=== PATIENT | female | born 1995 | race African-American/Black ===

== ENCOUNTER 2018-04-10 21:19 | Emergency (ER) | payer OTHER ==
[~2018-04-10] VITALS: Ht 167.6 cm; Wt 99.8 kg
[2018-04-10 21:59] LABS: BILIRUBIN,URINE NEGATIVE (NEG); CLARITY,URINE CLOUDY; COLOR,URINE YELLOW; NITRITE,URINE POSITIVE (NEG); PROTEIN,URINE NEGATIVE (NEG-TRACE)
[2018-04-10 22:04] LABS: BACTERIA,URINE MANY /HPF (0-FEW); RBC,URINE 0 /HPF (0-2); SQUAMOUS EPITHELIAL CELL,UR FEW /LPF
[2018-04-10 22:06] LABS: U PREG PATIENT NEGATIVE (NEG)
[2018-04-10] MEDS ORDERED: NITR100C62 PO (22:17)
[2018-04-10] MEDS ORDERED: HYDR-971 PO (22:17)
[2018-04-10] MEDS ORDERED: IBUP-1060 PO (22:17)
[2018-04-10 22:28] VITALS: BP 140/78
[2018-04-10] MEDS ORDERED: NITROFURANTOIN MONOHYD/M-CRYST 100 MG CAPSULE. PO ONE (22:30)
[2018-04-10] MEDS ORDERED: IBUPROFEN 400 MG TABLET. PO ONE (22:30)
[2018-04-10] MEDS ORDERED: HYDROcodone/APAP 10/325 1 TAB TABLET PO ONE (22:30)
--- NOTE | 2018-04-11 01:14 | EKG ---
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 RI6.01 No previous ECG available for comparison Electronically Signed On 04-15-2018 12:39:56 PORTABLE PINCH RIVETER by Aldair Bundy
--- NOTE | 2018-04-11 04:06 | PHYS DOC ---
Past Medical History Past Medical History: No Pertinent History Past Surgical History: No Surgical History Alcohol Use: None Drug Use: None Adult General Chief Complaint Chief Complaint: ABDOMINAL PAIN HPI HPI Patient is a 23 year old female who presents with MSK chest pain. Patient has been having some pain over the right rib cage in the lower side as well as the right sternal area. Pain is worse with inspiration and movement. She did not have any traumatic injury but she does work for [employer] where she routinely lifts heavy boxes. She has been having pain over the last day but it did become worse this evening. She did not take any medication for her symptoms. No shortness of breath or palpitations. She initially complains of abdominal pain but during the physical exam the pain is found to be over the right lower rib cage. Her abdominal exam is normal. Review of Systems Review of Systems Constitutional: Denies fever or chills Eyes: Denies change in visual acuity HENT: Denies nasal congestion or sore throat Respiratory: Denies cough or shortness of breath Cardiovascular: No additional information not addressed in HPI GI: Denies abdominal pain, nausea Musculoskeletal: Denies back pain Integument: Denies rash or skin lesions Neurologic: Denies headache All other systems were reviewed and found to be within normal limits, except as documented in this note. Current Medications Current Medications Current Medications Medications (Trade) Dose Ordered Sig/[facility] Start Time Stop Time Status Last Admin Dose Admin Acetaminophen/ Hydrocodone Bitart (Lortab 10/325) 2 tab 1X ONCE 04/10/18 22:30 04/10/18 22:30 DC 04/10/18 22:26 2 TAB Ibuprofen (Motrin) 800 mg 1X ONCE 04/10/18 22:30 04/10/18 22:30 DC 04/10/18 22:26 800 MG Nitrofurantoin Macrocrystals (Macrobid) 100 mg 1X ONCE 04/10/18 22:30 04/10/18 22:30 DC 04/10/18 22:25 100 MG Allergies Allergies Allergies Coded Allergies Type Severity Reaction Last Updated Verified amoxicillin Allergy Unknown reported facial swelling 04/10/18 Yes Physical Exam Physical Exam Constitutional: Well developed, well nourished, no acute distress, non-toxic appearance HENT: Normocephalic, atraumatic, bilateral external ears normal, oropharynx moist Eyes: PERRLA, EOMI, conjunctiva normal Neck: Normal range of motion, no tenderness Cardiovascular:Heart rate regular rhythm, no murmur Lungs & Thorax: Bilateral breath sounds clear to auscultation, Palpation over the right rib cage and right chest wall does reproduce her presenting complaint Abdomen: Bowel sounds normal, soft, no tenderness Skin: Warm, dry, no erythema, no rash. Back: No tenderness, no CVA tenderness Neurologic: Alert and oriented X 3, normal motor function Psychologic: Affect normal Current Patient Data Vital Signs Vital Signs Date Time Temp Pulse Resp B/P (MAP) Pulse Ox O2 Delivery O2 Flow Rate FiO2 04/10/18 22:28 90 20 140/78 (98) 99 Room Air 04/10/18 21:19 98.1 98.1 Lab Values Laboratory Tests Test 04/10/18 21:33 Urine Collection Type Unknown Urine Color Yellow Urine Clarity Cloudy Urine pH 6.0 Urine Specific [place] 1.025 Urine Protein Negative mg/dL (NEG-TRACE) Urine Glucose (UA) Negative mg/dL (NEG) Urine Ketones (Stick) Negative mg/dL (NEG) Urine Blood Negative (NEG) Urine Nitrite Positive (NEG) Urine Bilirubin Negative (NEG) Urine Urobilinogen Dipstick 1.0 mg/dL (0.2 mg/dL) Urine Leukocyte Esterase Negative (NEG) Urine RBC 0 /HPF (0-2) Urine WBC 1-4 /HPF (0-4) Urine Squamous Epithelial Cells Few /LPF Urine Bacteria Many /HPF (0-FEW) Urine Mucus Mod /LPF Urine Test Negative (NEG) EKG EKG [] Radiology/Procedures Radiology/Procedures [] Course & Med Decision Making Course & Med Decision Making Pertinent Labs and Imaging studies reviewed. (See chart for details) Patient was evaluated in the emergency department for chest pain. She did not have abdominal pain. She was treated for musculoskeletal pain symptoms. She was given pain medications. Her mother was present to drive her home. She was incidentally found to have a nitrite positive urinary tract infection although she denied urinary symptoms. Patient was treated with Macrobid. She was discharged home with medications to take at home as well. She was advised to come back to the ER for any new or worsening symptoms. Dragon Disclaimer Dragon Disclaimer This electronic medical record was generated, in whole or in part, using a voice recognition dictation system. Departure Departure Impression: Primary Impression: Musculoskeletal chest pain Additional Impression: Urinary tract infection Disposition: HOME, SELF-CARE Condition: GOOD Patient Instructions: Urinary Tract Infection, Musculoskeletal Pain Scripts Hydrocodone/Apap 5-325 (NORCO 5-325 TABLET) 1 Each Tablet 1-2 EACH PO PRN Q6HRS PRN for severe pain, #15 as needed for pain Prov: DIPTI GARDUNO DO 04/10/18 Nitrofurantoin Monohyd/M-Cryst (MACROBID 100 MG CAPSULE) 100 Mg Capsule 1 CAP PO BID, #10 CAP Prov: DIPTI GARDUNO DO 04/10/18 Ibuprofen (IBUPROFEN) 800 Mg Tablet 800 MG PO PRN TID PRN for PAIN, #21 TAB take with food or milk to avoid upsetting stomach Prov: DIPTI GARDUNO DO 04/10/18 Problem Qualifiers DIPTI GARDUNO DO Apr 11, 2018 04:06
== END 2018-04-10 22:30 | disposition home or self-care (01) ==
LOC: ER 21:19
DX: N39.0 Urinary tract infection, site not specified (principal); R07.89 Other chest pain; R10.9 Unspecified abdominal pain; Z88.1 Allergy status to other antibiotic agents
CPT/HCPCS: 81001; 81025; 93005; 99283; 99285

== ENCOUNTER 2020-03-19 04:00 | Emergency (ER) | payer SELFPAY ==
[~2020-03-19] VITALS: Ht 175.3 cm; Wt 145.5 kg
[~2020-03-19 04:00] MED LIST: HYDR-3164 PO; IBUP-1060 PO; NITR100C62 PO; ONDA4TAB7 PO
[2020-03-19 05:10] VITALS: BP 150/87
--- NOTE | 2020-03-19 06:29 | PHYS DOC ---
Past Medical History Past Medical History: No Pertinent History (MIHAI TOMLIN DO) Past Surgical History: No Surgical History (MIHAI TOMLIN DO) Smoking Status: Current Every Day Smoker Alcohol Use: None Drug Use: None (MIHAI TOMLIN DO) General Adult EDM: Chief Complaint: LOWER EXT PAIN HPI: HPI: 24-year-old -[place] female, past medical history of tobacco use, presents the ED with complaints of left ankle pain after she injured it while walking down stairs just prior to arrival, no relief with 200 mg ibuprofen. Pat anders states she was going downstairs when her left ankle inverted. Complains of pain to the left lateral malleolus. No prior injury to this ankle. No associated knee or hip tenderness. Reports she is unable to ambulate on the ankle. Last menstrual period was March 06. Did not hit her head or lose consciousness. Denies any alcohol or drug use tonight. (MIHAI TOMLIN DO) Review of Systems: Review of Systems: Constitutional: Denies fever or chills. [] Eyes: Denies change in visual acuity. [] HENT: Denies nasal congestion or sore throat. [] Respiratory: Denies cough or shortness of breath. [] Cardiovascular: Denies chest pain or edema. [] GI: Denies abdominal pain, nausea, vomiting, or diarrhea. [] : Denies dysuria. [] Musculoskeletal: Denies back pain or saddle anesthesia Integument: Denies rash. [] Neurologic: Denies headache, focal weakness or sensory changes. [] Endocrine: Denies polyuria or polydipsia. [] Lymphatic: Denies swollen glands. [] Psychiatric: Denies depression or anxiety. [] (MIHAI TOMLIN DO) Heart Score: Risk Factors: Risk Factors: DM, Current or recent (<one month) smoker, HTN, HLP, family history of CAD, obesity. Risk Scores: Score 0 - 3: 2.5% MACE over next 6 weeks - Discharge Home Score 4 - 6: 20.3% MACE over next 6 weeks - Admit for Clinical Observation Score 7 - 10: 72.7% MACE over next 6 weeks - Early Invasive Strategies (MIHAI TOMLIN DO) Allergies: Allergies: Allergies Coded Allergies Type Severity Reaction Last Updated Verified amoxicillin Allergy Unknown reported facial swelling 04/10/18 Yes (MIHAI TOMLIN DO) Physical Exam: PE: Constitutional: Well developed, well nourished, no acute distress, non-toxic appearance. [] HENT: Normocephalic, atraumatic, Eyes: EOMI, conjunctiva normal, no discharge. [] Neck: Normal range of motion, no tenderness, Cardiovascular: S1, S2 present Lungs & Thorax: Speaking in full sentences, bilateral equal chest rise Skin: Warm, dry, no erythema, no rash. [] Back: No tenderness, no CVA tenderness. [] Extremities: No tenderness, no cyanosis, no clubbing, swelling and tenderness to palpation over the left lateral malleoli, normal left DP PT pulse, no pain at left knee, fibular head or hip Neurologic: Alert and oriented X 3, normal motor function, normal sensory function, no focal deficits noted. [] Psychologic: Affect normal, judgement normal, mood normal. [] (MIHAI TOMLIN DO) Current Patient Data: Vital Signs: Vital Signs Date Time Temp Pulse Resp B/P (MAP) Pulse Ox O2 Delivery O2 Flow Rate FiO2 03/19/20 05:10 98.0 84 150/87 (108) 97 Room Air 98.0 (MIHAI TOMLIN DO) EKG: EKG: [] (MIHAI TOMLIN DO) Radiology/Procedures: Radiology/Procedures: [] (MIHAI TOMLIN DO) Radiology/Procedures: PROCEDURE: Splint application & evaluation Because of the condition described above in the chart, I decided it would be best for the patient's injury to be immobilized. A posterior short splint was placed on the left lower extremity by the nurse, using Ortho-Glass, under my supervision. After application, I evaluated the extremity and deemed it to be satisfactorily immobilized. In addition, the patient's distal neurological and vascular examination was unchanged, and without evidence of compartment syndrome. The patient tolerated the procedure well. [facility] [address] [place], [place] [id number] IMAGING REPORT Signed PATIENT: URBANO JAIN ACCOUNT: [id number] : 1995 LOCATION: ER AGE: 24 SEX: F EXAM STATUS: REG ER ORD. PHYSICIAN: MIHAI TOMLIN DO REASON: rolled ankle PROCEDURE: FOOT LEFT 3V Left ankle x-rays 3 views HISTORY: Left ankle injury and pain. FINDINGS: There is lower calf and ankle soft tissue edema and swelling. On the lateral view the anterior tibial plafond demonstrates spurring as well as a linear lucency raising the possibility of a fracture. The malleoli and talus are intact. There are small chronic appearing ossicles along the medial and lateral aspects of the talus on the frontal view. IMPRESSION: Linear lucency of the anterior tibial plafond raising suspicion of an acute traumatic nondisplaced fracture. Diffuse soft tissue swelling is present. See above. Left foot x-rays 3 views HISTORY: Left foot injury and pain. FINDINGS: Small chronic ossicles along the medial ankle. No fracture or dislocation of the foot evident. IMPRESSION: No acute osseous injury of the foot. Electronically signed by: Toni Villalobos MD (03/19/2020 6:32 AM) [facility] [place] and SIGNED BY: TONI VILLALOBOS MD DATE: 03/19/20 0632 [facility] [address] [place] [address] IMAGING REPORT Signed PATIENT: URBANO JAIN ACCOUNT: [id number] : 1995 LOCATION: ER AGE: 24 SEX: F EXAM STATUS: REG ER ORD. PHYSICIAN: MIHAI TOMLIN DO REASON: pain PROCEDURE: ANKLE LEFT 3V Left ankle x-rays 3 views HISTORY: Left ankle injury and pain. FINDINGS: There is lower calf and ankle soft tissue edema and swelling. On the lateral view the anterior tibial plafond demonstrates spurring as well as a linear lucency raising the possibility of a fracture. The malleoli and talus are intact. There are small chronic appearing ossicles along the medial and lateral aspects of the talus on the frontal view. IMPRESSION: Linear lucency of the anterior tibial plafond raising suspicion of an acute traumatic nondisplaced fracture. Diffuse soft tissue swelling is present. See above. Left foot x-rays 3 views HISTORY: Left foot injury and pain. FINDINGS: Small chronic ossicles along the medial ankle. No fracture or dislocation of the foot evident. IMPRESSION: No acute osseous injury of the foot. Electronically signed by: Toni Villalobos MD (03/19/2020 6:32 AM) [facility] [place]CTATED and SIGNED BY: TONI VILLALOBOS MD DATE: 03/19/20 0632 (ANGELES CAMARENA DO) Course & Med Decision Making: Course & Med Decision Making Pertinent Labs and Imaging studies reviewed. (See chart for details) Patient with left lateral ankle swelling, x-rays pending. Due to shift change p atient was signed out to Dr. Camarena. (MIHAI TOMLIN DO) Course & Med Decision Making I have received signout on the patient's emergency department care from Dr. Tomlin. We discussed the history, physical exam findings, completed and pending laboratory results and imaging studies. We have also discussed the current treatment plan and expected clinical course. Please refer to further update notes for additional information regarding the patient's final diagnosis and disposition. In brief patient is a 24-year-old female presents with chief complaint of left ankle foot pain status post injury prior to arrival. Plain film imaging does not reveal any obvious acute osseous abnormality. She does have significant swelling and point tenderness over the lateral malleoli. Furthermore, she states it is extremely difficult to bear weight. Given that she will be placed in a posterior short leg splint as well as given crutches. She was instructed to follow-up with her primary care physician in the next 2-3 business days. She also be given referral to orthopedic surgery to follow-up with. She was encouraged report back to emergency department in the next week or 2 if her symptoms do not improve. RICE precautions given. Stable for discharge home. (ANGELES CAMARENA DO) Dragon Disclaimer: Dragon Disclaimer: This electronic medical record was generated, in whole or in part, using a voice recognition dictation system. (MIHAI TOMLIN DO) Departure Departure Impression: Primary Impression: Left ankle injury Qualified Codes: S99.912A - Unspecified injury of left ankle, initial encounter Disposition: 01 DC HOME SELF CARE/HOMELESS Condition: STABLE Referrals: NO PCP (PCP) AMANDA COOPER MD Patient Instructions: Ankle Pain, Ankle Sprain Additional Instructions: [facility] [address] [place] [address] [facility] [address] [place] [address] [facility] [address] [place] [address] [facility] [address] [place] [address] [facility] [address] [place] [address] [facility] [address] [place] [address] [address] [place] [address] [facility] [address] [place] [address] [facility] [address] [place] [address] [facility] Department [address] [place] [address] Scripts Ibuprofen (IBUPROFEN) 600 Mg Tablet 600 MG PO PRN Q6HRS PRN for PAIN, #20 TAB take with food or milk Prov: ANGELES CAMARENA DO 03/19/20 MIHAI TOMLIN DO Mar 19, 2020 06:29 ANGELES CAMARENA DO Mar 19, 2020 06:46
--- NOTE | 2020-03-19 06:35 | RAD ---
Left ankle x-rays 3 views HISTORY: Left ankle injury and pain. FINDINGS: There is lower calf and ankle soft tissue edema and swelling. On the lateral view the anterior tibial plafond demonstrates spurring as well as a linear lucency raising the possibility of a fracture. The malleoli and talus are intact. There are small chronic appearing ossicles along the medial and lateral aspects of the talus on the frontal view. IMPRESSION: Linear lucency of the anterior tibial plafond raising suspicion of an acute traumatic nondisplaced fracture. Diffuse soft tissue swelling is present. See above. Left foot x-rays 3 views HISTORY: Left foot injury and pain. FINDINGS: Small chronic ossicles along the medial ankle. No fracture or dislocation of the foot evident. IMPRESSION: No acute osseous injury of the foot. Electronically signed by: Arturo Villalobos MD (03/19/2020 6:32 AM) ROBBY
[2020-03-19] MEDS ORDERED: IBUP-1007 PO (06:45)
[2020-03-19] MEDS ORDERED: HYDROcodone/APAP 5/325MG 1 TAB TABLET PO ONE (07:00)
== END 2020-03-19 07:22 | disposition home or self-care (01) ==
LOC: ER 04:00
DX: S99.812A Other specified injuries of left ankle, initial encounter (principal); M25.572 Pain in left ankle and joints of left foot; M79.672 Pain in left foot; R60.0 Localized edema; F17.200 Nicotine dependence, unspecified, uncomplicated; Z88.1 Allergy status to other antibiotic agents; W10.8XXA Fall (on) (from) other stairs and steps, initial encounter; Y93.89 Activity, other specified; Y92.89 Other specified places as the place of occurrence of the external cause; Y99.8 Other external cause status
CPT/HCPCS: 29515; 73610; 73630; 99284

== ENCOUNTER 2020-05-29 14:11 | Emergency (ER) | payer SELFPAY ==
[~2020-05-29] VITALS: Ht 172.7 cm; Wt 145.4 kg
[~2020-05-29 14:11] MED LIST changes: +IBUP-1007 PO
--- NOTE | 2020-05-29 14:54 | ED.ADGEN ---
Past Medical History Past Medical History: No Pertinent History Past Surgical History: No Surgical History Smoking Status: Current Every Day Smoker Additional Information: pt reports smoking one cigarette a week Alcohol Use: None Drug Use: None General Adult EDM: Chief Complaint: HAND PROBLEM HPI: HPI: Patient is a 25 year old AA female who presents to the emergency department with complaints of pain in her first, second, and third digits of her bilateral hands and numbness in her bilateral hands while she slept last night. The symptoms continued for short a period of time after awakening. 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 She also reports concerns of . Patient states that she skipped her period last month. She started to have some vaginal spotting and wanted to make sure she is not . She denies any pelvic pain, dysuria, hematuria, irregular vaginal discharge, vaginal odor, cough, shortness of breath, body aches, fatigue, sore throat, chest pain, palpitations, or dizziness. Patient states she has had a frontal headache today and everything that she smells smells sweet. She denies any loss of smell or taste. She denies any vision changes, dizziness, or difficulty speaking. She denies any known Covid exposure. She currently rates her pain a 4/10 on the pain scale, she denies any alleviating factors. Review of Systems: Review of Systems: Complete ROS is negative unless otherwise noted in HPI. Current Medications: Current Medications Medications (Trade) Dose Ordered Sig/[facility] Start Time Stop Time Status Last Admin Dose Admin Azithromycin (Zithromax) 1,000 mg 1X ONCE 05/29/20 15:30 05/29/20 15:31 DC 05/29/20 15:30 1,000 MG Ceftriaxone Sodium (Rocephin Im) 250 mg 1X ONCE 05/29/20 15:30 05/29/20 15:31 DC 05/29/20 15:30 250 MG Allergies: Allergies: Allergies Coded Allergies Type Severity Reaction Last Updated Verified amoxicillin Allergy Severe reported facial swelling 03/19/20 Yes Physical Exam: PE: See Above Constitutional: Well developed, well nourished, no acute distress, non-toxic appearance. [] HENT: Normocephalic, atraumatic, bilateral external ears normal, nose normal. [] Eyes: PERRLA, EOMI, conjunctiva normal, no discharge. [] Neck: Normal range of motion, no stridor. [] Cardiovascular:Heart rate regular rhythm Lungs & Thorax: Respirations even and unlabored, no retractions, no respiratory distress Skin: Warm, dry, no erythema, no rash. [] Extremities: BLE: No bony tenderness, no deformity, no cyanosis, ROM intact, no edema; negative Tinel's sign, positive Phalen sign. [] Neurologic: Alert and oriented X 3, no focal deficits noted. [] Psychologic: Affect normal, judgement normal, mood normal. [] Current Patient Data: Labs: Laboratory Tests Test 05/29/20 14:20 05/29/20 14:21 Urine Collection Type Unknown Urine Color Yellow Urine Clarity Clear Urine pH 6.0 (<5.0-8.0) Urine Specific [place] 1.020 (1.000-1.030) Urine Protein Negative mg/dL (NEG-TRACE) Urine Glucose (UA) Negative mg/dL (NEG) Urine Ketones (Stick) Negative mg/dL (NEG) Urine Blood Large (NEG) Urine Nitrite Positive (NEG) Urine Bilirubin Negative (NEG) Urine Urobilinogen Dipstick 0.2 mg/dL (0.2 mg/dL) Urine Leukocyte Esterase Moderate (NEG) Urine RBC 3-5 /HPF (0-2) Urine WBC 11-20 /HPF (0-4) Urine Squamous Epithelial Cells Many /LPF Urine Bacteria Many /HPF (0-FEW) Urine Mucus Mod /LPF Urine Trichomonas Present POC Urine HCG, Qualitative Hcg negative (Negative) Vital Signs: Vital Signs Date Time Temp Pulse Resp B/P (MAP) Pulse Ox O2 Delivery O2 Flow Rate FiO2 05/29/20 15:50 59 18 137/83 (101) 100 Room Air 05/29/20 14:25 98.4 98.4 EKG: EKG: [] Heart Score: Risk Factors: Risk Factors: DM, Current or recent (<one month) smoker, HTN, HLP, family history of CAD, obesity. Risk Scores: Score 0 - 3: 2.5% MACE over next 6 weeks - Discharge Home Score 4 - 6: 20.3% MACE over next 6 weeks - Admit for Clinical Observation Score 7 - 10: 72.7% MACE over next 6 weeks - Early Invasive Strategies Radiology/Procedures: Radiology/Procedures: [] Course & Med Decision Making: Course & Med Decision Making Pertinent Labs and Imaging studies reviewed. (See chart for details) 25-year-old female presented emergency department with concerns of , bilateral wrist pain that caused her hands and fingers to her mom, and concerns about everything smelling sweet. Physical exam is concerning for carpal tunnel of bilateral wrists. Urine test is negative. UA is concerning for findings of trichomonas and nitrate positive UTI, prompting concerns of a sexually transmitted infection. Gonorrhea and Chlamydia by urine is pending. I advised the patient of these findings and concerns of an STI. Patient was treated prophylactically with 250 mg of IM Rocephin, and 1 g of PO Zithromax. Patient was instructed to avoid having intercourse until the results of gonorrhea and chlamydia testing are available, patient was notified that these results would not be available for 48 hours. If one or both of these tests is positive, patient needs to refrain from intercourse for approximately 1 week following the treatment of any current partners. Prescription was written for 500 mg of Flagyl p.o. twice daily x7 days and Bactr im DS 1 tab p.o. twice daily x7 days. I encouraged the patient to increase clear fluids and avoid bladder irritants, follow-up with her primary care doctor for further evaluation next week return to the ER symptoms worsen. Patient verbalized an understanding of home care, medications, follow-up, and return to ED instructions and was in agreement with the plan of care. I have reviewed the PA/MUSEUM LIBRARIAN's note and Plan of Care. I was available for consultation as needed during the patient's visit in the emergency department. I agree with the clinical impression, plans and disposition. Mikey Disclaimer: Mikey Disclaimer: This electronic medical record was generated, in whole or in part, using a voice recognition dictation system. Departure Departure Impression: Primary Impression: Bilateral carpal tunnel syndrome Additional Impressions: Irregular menstrual cycle Trichomoniasis Urinary tract infection Disposition: 01 DC HOME SELF CARE/HOMELESS Condition: STABLE Referrals: NO PCP (PCP) Patient Instructions: Abnormal Uterine Bleeding, Carpal Tunnel Syndrome, [id number], Sexually Transmitted Disease, [id number], Trichomoniasis-Brief Additional Instructions: Fill the prescription and use as directed. Recommend night time wrist splints as discussed. Your test was negative. Follow up with a primary care doctor for further evaluation of the alteration in your sense of smell. Return to the ER if your symptoms worsen or fever develops. I Recommend that you go to your local health department for comprehensive sexually transmitted disease testing. You have been treated for a suspected gonorrhea and chlamydia. Avoid having intercourse until the results of gonorrhea and chlamydia testing are available, these results will not be available for 48 hours. If one or both of these tests is positive, you need to refrain from intercourse for approximately 1 week following the treatment of any current partners. Follow-up with your primary care doctor if symptoms persist, return to ER symptoms worsen. Scripts Sulfamethoxazole/Trimethoprim (BACTRIM DS TABLET) 1 Each Tablet 1 TAB PO BID for 7 Days, #14 TAB 0 Refills Prov: NIMESH BUTTERFIELD APRN 05/29/20 Metronidazole (FLAGYL) 500 Mg Tablet 1 TAB PO BID, #14 TAB 0 Refills Prov: NIMESH BUTTERFIELD APRN 05/29/20 Problem Qualifiers Additional Impressions: Urinary tract infection Urinary tract infection type: site unspecified Hematuria presence: without hematuria Qualified Codes: N39.0 - Urinary tract infection, site not specified NIMESH BUTTERFIELD APRN May 29, 2020 14:54 VANE JACOBSEN MD May 29, 2020 17:14
[2020-05-29 14:59] LABS: BILIRUBIN,URINE NEGATIVE (NEG); CLARITY,URINE CLEAR; COLOR,URINE YELLOW; NITRITE,URINE POSITIVE (NEG); PROTEIN,URINE NEGATIVE (NEG-TRACE); UROBILINOGEN,URINE 0.2 mg/dL (0.2 mg/dL)
[2020-05-29 15:09] LABS: BACTERIA,URINE MANY /HPF (0-FEW)
[2020-05-29 15:11] LABS: TRICHOMONAS,URINE PRESENT
[2020-05-29] MEDS ORDERED: SULF1TAB24 PO (15:21)
[2020-05-29] MEDS ORDERED: METR500T PO (15:21)
[2020-05-29] MEDS ORDERED: cefTRIAXone IM 250 MG VIAL IM ONE (15:30)
[2020-05-29] MEDS ORDERED: AZITHROMYCIN 250 MG TABLET. PO ONE (15:30)
[2020-05-29 15:50] VITALS: BP 137/83
== END 2020-05-29 15:50 | disposition home or self-care (01) ==
LOC: ER 14:11
DX: N39.0 Urinary tract infection, site not specified (principal); N92.6 Irregular menstruation, unspecified; A59.9 Trichomoniasis, unspecified; G56.03 Carpal tunnel syndrome, bilateral upper limbs; F17.210 Nicotine dependence, cigarettes, uncomplicated; Z88.1 Allergy status to other antibiotic agents
CPT/HCPCS: 81001; 81025; 87086; 87491; 87591; 96372; 99283; J0696

== ENCOUNTER 2021-01-04 21:08 | Emergency (ER) | payer SELFPAY ==
[~2021-01-04] VITALS: Ht 167.6 cm; Wt 145.4 kg
[~2021-01-04 21:08] MED LIST changes: +METR500T PO; +SULF1TAB24 PO
[2021-01-04 21:17] VITALS: BP 135/66
[2021-01-04 21:48] LABS: BILIRUBIN,URINE NEGATIVE (NEG); CLARITY,URINE CLEAR; COLOR,URINE YELLOW; NITRITE,URINE POSITIVE (NEG); PROTEIN,URINE TRACE mg/dL (NEG-TRACE)
[2021-01-04 21:49] LABS: BACTERIA,URINE MANY /HPF (0-FEW); RBC,URINE 0 /HPF (0-2)
[2021-01-04 21:50] LABS: TRICHOMONAS,URINE PRESENT
[2021-01-04] MEDS ORDERED: cefTRIAXone IM 500 MG VIAL. IM ONE (22:00)
[2021-01-04] MEDS ORDERED: DOXY100C2 PO (22:42)
[2021-01-04] MEDS ORDERED: NITR100C62 PO (22:42)
--- NOTE | 2021-01-04 22:45 | PHYS DOC ---
Past Medical History Past Medical History: No Pertinent History Additional Past Medical Histor: obesity Past Surgical History: No Surgical History Smoking Status: Never Smoker Alcohol Use: None Drug Use: None General Adult EDM: Chief Complaint: SEXUALLY TRANSMITTED DISEASE HPI: HPI: 25-year-old obese -[place] female with no significant past medical history who presents the ED with complaints of painless genital lesion. States her partner has been sexually active with another individual and pt was informed by her sexual partner that his other sexual partner, was positive for an unknown sexually transmitted disease. Was treated for gonorrhea 2 years ago. No known h/o HIV. LMP 2 weeks ago. Denies associated dysuria, hematuria, flank pain, nausea, vomiting, vaginal bleeding, abnormal vaginal discharge itching or odor. Review of Systems: Review of Systems: Constitutional: Denies fever or chills. [] Eyes: Denies change in visual acuity. [] HENT: Denies nasal congestion or sore throat. [] Respiratory: Denies cough or shortness of breath. [] Cardiovascular: Denies chest pain or edema. [] GI: Denies abdominal pain, nausea, vomiting : Denies dysuria or hematuria Musculoskeletal: Denies back pain or joint pain. [] Integument: Denies blistering lesions or desquamation Neurologic: Denies focal weakness or sensory changes. [] Endocrine: Denies polyuria or polydipsia. [] Psychiatric: Denies depression or anxiety. [] Heart Score: C/O Chest Pain: No Risk Factors: Risk Factors: DM, Current or recent (<one month) smoker, HTN, HLP, family history of CAD, obesity. Risk Scores: Score 0 - 3: 2.5% MACE over next 6 weeks - Discharge Home Score 4 - 6: 20.3% MACE over next 6 weeks - Admit for Clinical Observation Score 7 - 10: 72.7% MACE over next 6 weeks - Early Invasive Strategies Current Medications: Current Medications Medications (Trade) Dose Ordered Sig/Balaji Start Time Stop Time Status Last Admin Dose Admin Ceftriaxone Sodium (Rocephin Im) 500 mg 1X ONCE 01/04/21 22:00 01/04/21 22:04 DC 01/04/21 22:23 500 MG Allergies: Allergies: Allergies Coded Allergies Type Severity Reaction Last Updated Verified amoxicillin Allergy Severe reported facial swelling 03/19/20 Yes Physical Exam: PE: Constitutional: Well developed, well nourished, no acute distress, non-toxic appearance. HENT: Normocephalic, atraumatic, Eyes: EOMI, conjunctiva normal, no discharge. Neck: Normal range of motion, supple, Cardiovascular: S1/2 present, regular rhythm Lungs & Thorax: Speaking in full sentences, bilateral equal chest rise, no tachypnea or increased work of breathing Abd: soft, no tenderness Skin: Warm, dry, Extremities: No tenderness, no cyanosis, Neurologic: Alert and oriented X 3, no focal deficits noted. [] Psychologic: Affect normal, judgement normal, mood normal. [] Pelvic: Chaperoned by RN, external genitalia with painless ulcers/skin erosion over right perineal skin-multiple lesions over inferior aspects of inner labias- skin moist, no vaginal bleeding, normal clear nonmalodorous discharge, tolerated exam well Current Patient Data: Labs: Laboratory Tests Test 01/04/21 21:30 01/04/21 21:37 Urine Collection Type Void Urine Color Yellow Urine Clarity Clear Urine pH 6.0 (<5.0-8.0) Urine Specific [place] >=1.030 (1.000-1.030) Urine Protein Trace mg/dL (NEG-TRACE) Urine Glucose (UA) Negative mg/dL (NEG) Urine Ketones (Stick) Negative mg/dL (NEG) Urine Blood Negative (NEG) Urine Nitrite Positive (NEG) Urine Bilirubin Negative (NEG) Urine Urobilinogen Dipstick 2.0 mg/dL (0.2 mg/dL) Urine Leukocyte Esterase Negative (NEG) Urine RBC 0 /HPF (0-2) Urine WBC 11-20 /HPF (0-4) Urine Squamous Epithelial Cells Mod /LPF Urine Bacteria Many /HPF (0-FEW) Urine Mucus Mod /LPF Urine Trichomonas Present POC Urine HCG, Qualitative Hcg negative (Negative) Vital Signs: Vital Signs Date Time Temp Pulse Resp B/P (MAP) Pulse Ox O2 Delivery O2 Flow Rate FiO2 01/04/21 21:17 98.0 102 18 135/66 (101) 100 Room Air 98.0 EKG: EKG: [] Radiology/Procedures: Radiology/Procedures: [] Course & Med Decision Making: Course & Med Decision Making Pertinent Labs and Imaging studies reviewed. (See chart for details) Concern for unprotected intercourse with pain loss ulcers and urinalysis consistent with UTI. Was treated with 500 mg IM Rocephin in the ED. Will prescribe doxycycline and Macrobid. Urinalysis later reported trichomonas was present and Flagyl was prescribed to pharmacy -patient's contact phone number ending in [phone] and cousins' contact ending in [phone], both "cannot receive calls at this time." Patient was well-appearing, PID considered although pt has no abdominal /pelvic pain or fever. Patient's physical exam is concerning for primary syphilis infection. Will refer to local health department for testing of blood-borne illnesses including HIV, hepatitis and syphilis confirmation. Will discharge home with strict ED return precautions were given for fever, abdominal or pelvic pain or worsening rash. Encouraged urgent outpatient follow- up with PMD and [facility]. Life-threatening processes were considered but are low suspicion at this time, given history, physical exam and ED workup. Pt was educated on all prescription medications and adverse effects. All patient's questions were answered and pt was stable at time of discharge. Life/limb-threatening differential includes but is not limited to, ectopic , septic , sepsis/infection (endometritis, sti/pid, cystitis, pyelonephritis, Kevin's gangrene or necrotizing fasciitis, abscess), ovarian torsion, ruptured hemorrhagic ovarian cyst, endometriosis, ureterolithiasis, t hrombophlebitis, hemorrhage/DIC, organ prolapse, abdominal aortic aneurysm, mesenteric ischemia, neoplasm, bowel obstruction or surgical abdomen. I have spoken with the patient and/or caregivers. I explained the patient's condition, diagnoses and treatment plan based on the information available to me at this time. I have answered the patient and/or caregiver's questions and add ressed any concerns. The patient and/or caregivers have a good understanding of patient's diagnosis, condition and treatment plan as can be expected at this point. Vital signs have been stable. Patient's condition is stable and appropriate for discharge from the emergency department. Patient will pursue further outpatient evaluation with primary care physician or other designated or consulting physician as outlined in the discharge instructions. The patient and/or caregivers are agreeable to this plan of care and follow-up instructions have been explained in detail. The patient and/or caregivers have received these instructions in written form and have expressed an understanding of the discharge instructions. The patient and/or caregivers are aware that any significant change of condition or worsening of symptoms should prompt immediate return to this or the closest emergency department or call to 911. Mikey Disclaimer: Mikey Disclaimer: This electronic medical record was generated, in whole or in part, using a voice recognition dictation system. Departure Departure Impression: Primary Impression: Genital ulcer, female Additional Impressions: Urinary tract infection At risk for sexually transmitted disease due to unprotected sex Trichomoniasis Disposition: HOME / SELF CARE / HOMELESS Condition: STABLE Referrals: NO PCP (PCP) Follow-up with your primary care physician in 24 to 48 hours OR FOLLOW UP WITH FAMILY MEDICINE: [id number] [place] [address] Patient Instructions: Sexually Transmitted Disease, Syphilis Detection Test, Urinary Tract Infection Additional Instructions: FOLLOW UP WITH [facility]: FOR DEFINITIVE MANAGEMENT OR HEALTH DEPARTMENT FOR TESTING OF BLOOD-BORNE ILLNESSES (HIV, HEPATITIS, SYPHILIS TESTING, ETC) [facility] [id number], [address] [place] [address] EMERGENCY DEPARTMENT GENERAL DISCHARGE INSTRUCTIONS Thank you for coming to [facility] Emergency Department (ED) tod ay and trusting us with you care. We trust that you had a positive experience in our Emergency Department. If you wish to speak to the department management, you may call the Director at [phone]. YOUR FOLLOW UP INSTRUCTIONS ARE FOLLOWS: 1. Do you have a private Doctor? If you do not have a private doctor, please ask for a resource list of physicians or clinics that may be able to assist you with follow up care. 2. The Emergency Physicain has interpreted your x-rays. The X-Ray specialist will also review them. If there is a change in the findings, you will be notified in 48 hours when at all possible. 3. A lab test or culture has been done, your results will be reviewed and you will be notified if you need a change in treatment. ADDITIONAL INSTRUCTIONS AND INFORMATION: 1. Your care today has been supervised by a physician who is specially trained in emergency care. Many problems require more than one evaluation for a complete diagnosis and treatment. We recommend that you schedule your follow up appointment as recommended to ensure complete treatment of you illness or injury. If you are unable to obtain follow up care and continue to have a problem, or if your condition worsens, we recommend that you return to the ED. 2. We are not able to safely determine your condition over the phone nor are we able to give sound medical advice over the phone. For these safety reasons, if you call for medical advice we will ask you to come to the ED for further evaluation. 3. If you have any questions regarding these discharge instructions please call the ED at [phone]. SAFETY INFORMATION: In the interest of safety, wellness, and injury prevention; we encourage you to wear your sealbelt, if you smoke; quite smoking, and we encourage family to use a protective helmet for bicycling and other sporting events that present an increased risk for head injury. IF YOUR SYMPTOMS WORSEN OR NEW SYMPTOMS DEVELOP, OR YOU HAVE CONCERNS ABOUT YOUR CONDITION; OR IF YOUR CONDITION WORSENS WHILE YOU ARE WAITING FOR YOUR FOLLOW UP APPOINTMENT; EITHER CONTACT YOUR PRIMARY CARE DOCTOR, THE PHYSICIAN WHOSE NAME AND NUMBER YOU WERE GIVEN, OR RETURN TO THE ED IMMEDIATELY. Scripts Metronidazole (FLAGYL) 500 Mg Tablet 1 TAB PO BID for 7 Days, #14 TAB Prov: MIHAI TOMLIN DO 01/05/21 Nitrofurantoin Monohyd/M-Cryst (MACROBID 100 MG CAPSULE) 100 Mg Capsule 1 CAP PO BID for 7 Days, #14 CAP 0 Refills Prov: MIHAI TOMLIN DO 01/04/21 Doxycycline Hyclate (DOXYCYCLINE HYCLATE) 100 Mg Capsule 1 CAP PO BID for 14 Days, #28 CAP Prov: MIHAI TOMLIN DO 01/04/21 MIHAI TOMLIN DO Jan 04, 2021 22:45
[2021-01-05] MEDS ORDERED: METR500T PO (07:10)
[2021-01-07 16:10] LABS: GC PROBE Negative (Negative)
== END 2021-01-04 22:54 | disposition home or self-care (01) ==
LOC: ER 21:08
DX: N76.6 Ulceration of vulva (principal); N39.0 Urinary tract infection, site not specified; A59.9 Trichomoniasis, unspecified; Z88.1 Allergy status to other antibiotic agents
CPT/HCPCS: 81001; 81025; 87086; 87491; 87591; 96372; 99284; J0696; 99283